=== PATIENT | female | born 1970 | race Caucasian/White ===

== ENCOUNTER 2018-08-22 12:57 | Emergency (ER) | payer BC ==
[2018-08-22 13:08] VITALS: BP 120/70
--- NOTE | 2018-08-22 14:15 | UC ---
Upper Extremity HPI - HPI Summary HPI Summary: 48-year-old presents with complaints of right hand and thumb pain after accidentally slipping and falling onto an outstretched hand this morning. Complains of pain and swelling over the thenar eminence of the right hand. Pain worsens with movement especially flexion of the thumb. She has taken ibuprofen 600 mg 1 dose with little relief. Denies numbness or tingling. Right hand dominant. 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 - History of Current Complaint Chief Complaint: UCUpperExtremity Stated Complaint: RT WRIST AND THUMB INJURY Time Seen by Provider: 08/22/18 14:01 Hx Obtained From: Patient Hx Last Menstrual Period: 4 months ago Pain Intensity: 3 - Allergies/Home Medications Allergies/Adverse Reactions: Allergies Allergy/AdvReac Type Severity Reaction Status Date / Time Penicillins Allergy Airway Verified 08/22/18 13:08 Obstruction Home Medications: Home Medications Cholecalciferol (Vitamin D3) [Vitamin D3] 1,000 unit PO DAILY 08/22/18 [History Confirmed 08/22/18] Multivitamin [Multivitamins] 1 cap PO DAILY 08/22/18 [History Confirmed 08/22/18 ] PMH/Surg Hx/FS Hx/Imm Hx Previously Healthy: Yes - Denies significant PMH - Surgical History Surgical History: Yes Surgery Procedure, Year, and Place: breast reduction. gallbladder removed - Family History Known Family History: Positive: Non-Contributory - Social History Occupation: Employed Full-time Lives: With Family Alcohol Use: None Substance Use Type: None Smoking Status (MU): Never Smoked Tobacco Review of Systems All Other Systems Reviewed And Are Negative: Yes Constitutional: Positive: Negative Skin: Negative: Bruising Respiratory: Positive: Negative Cardiovascular: Positive: Negative Gastrointestinal: Positive: Negative Genitourinary: Positive: Negative Motor: Negative: Weakness Neurovascular: Negative: Decreased Sensation Musculoskeletal: Positive: Other: - See HPI Neurological: Positive: Negative Is Patient Immunocompromised?: No Physical Exam - Summary Physical Exam Summary: GENERAL APPEARANCE: Well developed, well nourished, alert and cooperative, and appears to be in no acute distress. HEAD: Atraumatic. normocephalic. EYES: PERRL, EOM intact. Vision is grossly intact. NECK: Neck supple, non-tender. CARDIAC: Normal S1 and S2. No S3, S4 or murmurs. Rhythm is regular. There is no peripheral edema, cyanosis or pallor. Extremities are warm and well perfused. Capillary refill is less than 2 seconds. LUNGS: Clear to auscultation without rales, rhonchi, wheezing or diminished breath sounds. ABDOMEN: Positive bowel sounds. Soft, nondistended, nontender. No guarding or rebound. No masses or hepatosplenomegally. MUSKULOSKELETAL: Normal muscular development. Normal gait. BACK: Examination of the spine reveals normal posture, no spinal deformity or tenderness, decreased range of motion or muscular spasm. EXTREMITIES: Tenderness with moderate swelling of the thenar eminence of right hand. Flexion and extension are intact although diminished due to pain. No ecchymosis, erythema, or gross deformity. Circulation and sensation intact distally. SKIN: Skin normal color, texture and turgor with no lesions or eruptions. Triage Information Reviewed: Yes Vital Signs: Initial Vital Signs Temp 97.9 F 08/22/18 13:03 Pulse 72 08/22/18 13:03 Resp 18 08/22/18 13:03 BP 120/70 08/22/18 13:03 Pulse Ox 100 08/22/18 13:03 Vital Signs Reviewed: Yes Diagnostics - Radiology No standard instances Radiology Interpretation Completed By: Radiologist Summary of Radiographic Findings: Patient Name: GURMEET LA Medical Record#: [id number]. Ordering Physician: Bart Keating NP Acct.#: [id number]. : 1970 Age: 48 Sex: F Location: [facility]. Exam Date: 06/28 ADM Status: REG ER. Order Information: HAND - RIGHT MINIMUM 3 VIEWS. Accession Number: [id number]. CPT: 72479. HISTORY: pain, swelling s/ p fall onto outstreched arm. COMPARISONS: None. VIEWS: 4 , Frontal, lateral, and oblique views of the right hand. FINDINGS: BONE DENSITY: Normal. BONES: There is no displaced fracture. JOINTS: There is no arthropathy. ALIGNMENT: There is no dislocation. SOFT TISSUES: Unremarkable. OTHER FINDINGS: None. IMPRESSION: NO ACUTE OSSEOUS INJURY. Upper Extremity Course/Dx - Course Course Of Treatment: 48-year-old presents with complaints of right hand and thumb pain after accidentally slipping and falling onto an outstretched hand this morning. Complains of pain and swelling over the thenar eminence of the right hand. Pain worsens with movement especially flexion of the thumb. She has taken ibuprofen 600 mg 1 dose with little relief. Denies numbness or tingling. Right hand dominant. 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 Afebrile. Vital signs stable. Exam reveals tenderness with moderate swelling of the thenar eminence of her right hand. Flexion and extension are intact although diminished due to pain. Circulation and sensation intact distally. X-ray reveals no acute fracture or dislocation. I am concerned for a soft tissue injury such as a partial tendon rupture. Patient was placed in a prefabricated thumb spica splint by the RN. Circulation and sensation were normal both pre- and post-application. Recommending conservative treatment including naproxen 500 mg twice a day for pain management as well as RICE. I have arranged for follow-up with orthopedic surgery tomorrow at 1:30 PM. Anticipatory guidance and warning symptoms were reviewed with the patient. She verbalizes understanding and agrees with plan of care. - Differential Dx/Diagnosis Differential Diagnosis/HQI/PQRI: Contusion, Fracture (Closed), Hematoma, Sprain Provider Diagnosis: Right hand pain Discharge - Sign-Out/Discharge Documenting (check all that apply): Patient Departure All imaging exams completed and their final reports reviewed: Yes - Discharge Plan Condition: Stable Disposition: HOME Prescriptions: Naproxen [Naproxen 500 mg tab] 500 mg PO Q12HR #30 tablet Patient Education Materials: Tendon Rupture (ED) Referrals: Roberto De La Torre MD [Medical Doctor] - 1 Day (Appointment scheduled for 2018 at 1:30 pm.) Kavita Haley MD [Primary Care Provider] - Additional Instructions: The x-ray performed in the clinic today showed no acute fracture. I suspect that you may have an injury of one of the tendons of the right thumb. Take naproxen 1 tablet every 12 hours with food for the next 5-7 days and then may take every 12 hours as needed for pain. Rest the hand as much as possible. Wear the splint that was applied in the clinic today until you have been evaluated by orthopedic surgery. You may remove to shower have her wear at all other times. Apply ice for 15-20 minutes at least 4 times a day for the next few days. Keep hand elevated at the level of your heart to help reduce swelling. You have an appointment with Dr. Zuniga, orthopedic surgery, tomorrow 2018 at 1:30 PM in the orthopedic clinic. Be sure to keep this appointment. Please call if you need to reschedule. Seek immediate medical attention in the emergency room if you have severe pain that is not managed with your pain medication, your hand or fingers turned a blue or pale color, he developed numbness or tingling in the hand or fingers, or have any worsening of symptoms. - Billing Disposition and Condition Condition: STABLE Disposition: Home
== END 2018-08-22 14:33 | disposition home or self-care (01) ==
LOC: UCEAST 12:57
DX: M79.641 Pain in right hand (principal); Z88.0 Allergy status to penicillin
CPT/HCPCS: 99213; G0463